=== PATIENT | male | born 1960 | race Caucasian/White ===

== ENCOUNTER 2021-05-13 01:17 | Day surgery (SDC) | payer BC, SELFPAY ==
[2021-05-03 11:20] VITALS: BMI 24.3
--- NOTE | 2021-05-12 15:21 | WPDGICN ---
Assessment and Plan Assessment and plan (1) Personal history of colonic polyps: Code(s): Z86.010 - Personal history of colonic polyps Status: Acute Assessment and Plan: Colonoscopy with possible biopsy or polypectomy or cautery or injection of substances. GI Consult Note Consult date/time: 05/12/21 15:21 HPI: Luis Manuel Shankar is a 60 year old male who is referred to me because he has history of having polyps. He is due for colonoscopy screening Review of Systems Review of Systems: All systems reviewed & are unremarkable except as noted in HPI and below PMFSH Past Medical History Medical History Allergies BMI 24.0-24.9, adult Chronic pain of both shoulders Encounter for prostate cancer screening PSA 0.31 on 03/07/2021 Encounter for wellness examination in adult Leukocytopenia (03/07/21) WBC 3.0 on 03/07/2021, WBC 3.6 on 04/15/2021 Male erectile dysfunction, unspecified normal testosterone of 582 with free testosterone 65.2 on 03/07/2021 Polyp of colon Seasonal allergic rhinitis Family History Family History Father Skin cancer Cerebrovascular accident Mother Skin cancer Heart disease Sibling Breast cancer Skin cancer Social History Social History Smoking status: Never smoker Alcohol intake: current Drinks per week: 3 Alcohol use details: BEERS Substance use: never Substance use type: does not use Living arrangements: with family Spiritual care concerns: No Meds Home Medications and Allergies Home Medications Medication Instructions Recorded Confirmed Type fluticasone propionate 50 1 spray INTRANASAL BID 03/02/21 05/03/21 History mcg/actuation nasal spray,suspension Allergies Allergy/AdvReac Type Severity Reaction Status Date / Time No Known Allergies Allergy Unverified 05/03/21 11:22 Exam Resp: Auscultation: clear to auscultation bilaterally Cardio: Rate: regular rate Rhythm: regular rhythm GI: GI Palp: Yes Soft to palpation and No Tenderness to palpation present (GI) [facility] Consult Billing Observation Consult [id number] New Pt Lvl 2 Strfd
[2021-05-13 06:56] VITALS: BP 125/69; PULSE 55; RESP 18; TEMP 35.7; O2SAT 100; BMI 24.4
[2021-05-13] MEDS: LACTATED RINGERS 1,000 ML 150 ML IV CONT (07:17)
--- NOTE | 2021-05-13 07:25 | WPDANESEPPF ---
Anes - Initial Pre Proc Eval Procedure: Operation Date: 05/13/21 08:00 Proposed Procedures p Screening Colonoscopy - Ranulfo Alvarado MD Date/Time: 05/13/21 07:25 Surgeon: Ranulfo Alvarado MD Pre Op Diagnosis: hx of colon polyps Patient Data Age: 60 Gender: M Height: 1.88 m Weight: 86.4 kg Last Vital Signs Temp 35.7 C L 05/13/21 06:56 Pulse 55 L 05/13/21 06:56 Resp 18 05/13/21 06:56 BP 125/69 05/13/21 06:56 Pulse Ox 100 05/13/21 06:56 Allergies Allergy/AdvReac Type Severity Reaction Status Date / Time No Known Allergies Allergy Unverified 05/03/21 11:22 Home Medications Medication Instructions Recorded Confirmed Type fluticasone propionate 50 1 spray INTRANASAL BID 03/02/21 05/03/21 History mcg/actuation nasal spray,suspension Patient hx anesthesia problems: none Family hx anesthesia problems: none Results Review: All pre-operative results and documents have been reviewed as part of the pre-operative evaluation. [facility] Past Medical History Medical History Allergies BMI 24.0-24.9, adult Chronic pain of both shoulders Encounter for prostate cancer screening PSA 0.31 on 03/07/2021 Encounter for wellness examination in adult Leukocytopenia (03/07/21) WBC 3.0 on 03/07/2021, WBC 3.6 on 04/15/2021 Male erectile dysfunction, unspecified normal testosterone of 582 with free testosterone 65.2 on 03/07/2021 Polyp of colon Seasonal allergic rhinitis Family History Family History Father Skin cancer Cerebrovascular accident Mother Skin cancer Heart disease Sibling Breast cancer Skin cancer Social History Social History Smoking status: Never smoker Alcohol intake: current Drinks per week: 3 Alcohol use details: BEERS Substance use: never Substance use type: does not use Living arrangements: with family Spiritual care concerns: No Anes - Eval Final PreProcedure Day of Procedure 05/13/21 07:25 Patient weight: normal Heart: regular rate and rhythm Lungs: clear to auscultation Airway: Mallampati scale class II Neurological: alert and oriented Last oral intake: >/= 8 hours ASA classification: I Emergent: no Anesthetic plan: proceed Anesthesia type and monitoring: general GIVS and standard monitoring Results Review: All pre-operative results and documents have been reviewed as part of the pre-operative evaluation. Informed Consent: The patient's anesthetic plan and its attendant risks and benefits were discussed with the patient/family/POA. Questions were solicited and answers provided to the satisfaction of the patient/family/POA.
[2021-05-13 08:12] VITALS: BP 81/49; PULSE 66; RESP 18; O2SAT 97
[2021-05-13 08:22] VITALS: BP 115/53; PULSE 57; RESP 18; O2SAT 97
[2021-05-13 08:28] VITALS: BP 108/66; PULSE 56; RESP 18; O2SAT 99
== END 2021-05-13 08:39 | disposition home or self-care (01) ==
PROVIDERS: PCP Family Medicine; Visit Provider Internal Medicine Gastroenterology
PROC: 0DJD8ZZ Inspection of Lower Intestinal Tract, Via Natural or Artificial Opening Endoscopic (ICD-10-PCS; CPT 45378; principal; 2021-05-13 08:00)
DX: Z12.11 Encounter for screening for malignant neoplasm of colon (principal); K62.1 Rectal polyp; K57.30 Diverticulosis of large intestine without perforation or abscess without bleeding
CPT/HCPCS: 45380; 88305; J2704; J7120